=== PATIENT | female | born 1975 | race Caucasian/White ===

== ENCOUNTER 2025-05-25 06:17 | Emergency (ER) | payer OTHER, SELFPAY ==
--- NOTE | ~2025-05-25 | XR_ITS ---
CLINICAL HISTORY: lap band eval 1 view abdomen Comparison: None provided Findings: Lap band angulation is difficult to assess given craniocaudal angulation of band though angle appears to measure 68 degrees. No pneumoperitoneum or pneumatosis. No abnormal calcifications. IUD projects within the pelvis. No acute fractures. IMPRESSION: Normal bowel gas pattern. Lap band angulation of 68 degrees though accuracy is limited due to craniocaudal angulation on imaging. This document has been electronically signed by: Dat Womack MD on 05/25/2025 08:45:32
[2025-05-25 06:24] VITALS: BP 155/102; PULSE 97; RESP 18; TEMP 37; O2SAT 98; BMI 22.9
--- OUTSIDE RECORDS SUMMARY | 2025-05-25 06:44 | XMS_ITS | Data Portability ---
Author Organization [facility] [address] [place] [address] Assessment No assessment recorded. Plan of Treatment Reminders Order Date Submit Date Provider Last Modified By Organization Details Last Modified Time Details Appointments None recorded. Lab None recorded. Referral None recorded. Procedures None recorded. Surgeries None recorded. Imaging None recorded. Medication Orders valacyclovi r 1 gram tablet 2022 023 [email or web address] [facility] #[id number], [address] [facility] [place], [address], 18:03:19 Patient TargetsNo targets recorded. Patient Instructions Encounter Date Encounter Id Patient Instructions Last Modified By Organization Details Last Modified Time 01/17/2023 [id number] shingles: care instructions [email or web address] Not available 01/17/2023 17:49:31 shingles information [email or web address] Not available 01/17/2023 17:49:31 Take the medication as prescribed. Keep lesions clean. Topical antibiotic ointment can be used if needed. Over the counter tylenol or ibuprofen may be taken per package instructions for pain if needed. See printed instructions and work note. Follow-up with your doctor if no improvement in a few days. Seek Emergency Medical evaluation for any worsening symptoms. [email or web address] Not available 01/17/2023 17:49:31 Reason for Referral None Reported. Problems No Known Problems Medical Equipment None Reported. Allergies No known drug allergies Medications Name Sig Start Date Stop Date Status Note LastModified by Organization Details LastModified Time valacyclovir 1 gram tablet Take 1 tablet 3 times a day by oral route for 7 days. 023 active Not Available Not Available Not Avai lable Vitals Date Recorded Body height Body mass index (BMI) Body weight Respiratory rate Pain severity - 0-10 verbal numeric rating [Score] - Reported Oxygen saturation Oxygen saturation in Arterial blood by Pulse oximetry Heart rate Body temperature Systolic And Diastolic Provider Name and Address Organization Details Last Updated DateTime 3 172.72 cm 28.9 kg/m2 30941.5 5 g 20 /min 6 98 % 98 % 84 /min 98.5 [degF] 132/87 mm[Hg] Lianet Edwards PA [employer] 3 16:30:35 Social History Question Answer Notes LastModified by [facility] Details LastModified Time Tobacco Smoking Status Never Smoker Lianet farrell PA - [employer] [facility] 01/17/2023 16:28:52 Have You Had Direct Contact, Or Contact During Intimacy, With Monkeypox Rash, Scabs, Or Body Fluids From A Person With Monkeypox? No Information not available 01/17/2023 Have You Recently Traveled Abroad? No Information not available 01/17/2023 Sex: Unknown Functional Status Question Answer Note LastModified by [facility] Details LastModified Time Do you use any illicit or recreational drugs? No Information not available 01/17/2023 Do you or have you ever used any other forms of tobacco or nicotine? No Information not available 01/17/2023 What is your level of alcohol consumption? Occasional Information not available 01/17/2023 Mental Status None recorded. Family History Relationship Description Onset Age of this Age Resolved Age Notes LastModified by Organization Details LastModified Time Father No current problems or disability Not available 01/17 16:28:45 Mother No current problems or disability Not available 01/17 16:28:45 Medical History No medical history recorded. Gynecological History Statement/Question Response Is there any chance of ? No LMP N/A Obstetrics History GPAL:G 0 P 0 0 0 0 Past Encounters Encounter ID Performer Location Encounter Start Date Encounter Closed Date Diagnosis/Indication Diagnosis SNOMED-CT Code Diagnosis ICD10 Code Diagnosis IMO Codes Diagnosis Note [id number] [address] [place] [address] 01/11/2022 08:52:17 01/11/2022 09:30:18 [id number] Isidra Marrero MD [address] [place] [address] 01/17/2023 16:07:48 01/17/2023 18:17:12 Herpes zoster 7557656 B02.9 Health Concerns Section Related Observation LastModified by Organization Detai ls LastModified Time None Recorded Concern Status LastModified by Organization Details LastModified Time None Recorded Advance Directives Directive None Recorded Payers Insurance Date Sequence Insurance Name Policy Number Policy Vaughan Covered Member ID Vaughan Member ID Guarantor Name 01/17/2023 1 [employer] Alysa C Cyn [id number] Alysa Cyn 01/17/2023 2 [employer] Alysa Cyn [id number] Alysa Cyn Notes Date Note Type Note Provider Name and Address Organization Details Recorded Time 01/17/2023 text/html UC Rash/Skin LesionReported by PatientHPIFor quality, patient reportspainful,red, andspreading. For associated symptoms, patient reportsfatiguebut reportsno fever. For source of patient information, patient reportsinformation obtained from patientandpatient arrived at urgent care ambulatory. For location, patient reportsback. For severity, patient reportsmoderate. For duration, patient reports1 days. For context, patient reportsno new detergent or skin product,no recent change in medication,no exposure to hair dye,no expsoure to new clothes/jewelry,no recent travel,no recent illness, andnot affiliated with chemicals/pesticides. For treatment history, patient reportsno history of treatment. For alleviating factors, (some improvement in pain with tylenol and ibuprofen.).47 year old female presenting for evaluation of possible shingles. The patient has a lap band in place and developed some constipation about 5 days ago. She resolved her constipation 2 days ago by taking metamucil. She noted some right lower back discomfort 2 days ago and thought it was due to her constipation but today she developed a rash consistent with shingles in the location of her pain. No fever or chills. She has a mild headache, some body aches and fatigue. No fever, chills, drainage from the lesions. No current abdominal pain. No nausea, vomiting or urinary symptoms. Isidra Marrero MD [address] [facility] [place], [address], PA - [facility] 01/17/2023 18:07:55 OBGyn Episode No OBEpisode recorded.
--- NOTE | 2025-05-25 07:09 | ED.NAVMDI ---
HPI - Nausea/Vomiting/Diarrhea General Chief complaint: Nausea/Vomiting/Diarrhea Stated complaint: General Medical Time Seen by Provider: 05/25/25 06:38 Source: patient Mode of arrival: ambulatory Limitations: no limitations History of Present Illness ED Provider: HPI Narrative: 49-year-old woman with a history of a lap band 2009 at [facility] with a surgeon who is retired, has had 2 modifications and had pressure decreased in the lap band before, reporting for the past 1-1/2 weeks heartburn, decreased sleep due to that, decreased p.o. intake, she states she is having a hard time keeping anything down. She is between jobs and her insurance and have had inability to follow up with her surgeon at that point. Related Data Allergies Allergy/AdvReac Type Severity Reaction Status Date / Time No Known Allergies Allergy Verified 05/25/25 06:24 Review of Systems Constitutional: Constitutional: Reports as per [facility] Social History Social History Advance Directives: No Advance Directives Information Provided: Yes Patient : No Physical Exam Exam: Exam: General: ?Appears of stated age ? ?mucosa is not dry, no scleral icterus ? ?CV: RRR, no obvious murmurs appreciated ? ?Resp: ?No wheezing rales rhonchi no stridor moving air well ? Abd: ?Bowel sounds are present, no rebound no rigidity ? ?MSK: FROM, strength 5/5 all extremities ? Skin: Warm, dry, intact, no jaundice ? ?Neuro: ?Alert and oriented x3, moving upper and lower extremities symmetrically, no obvious facial asymmetry noted, cranial nerves 2-12 intact Vital Signs: Vital Signs: Last Vital Signs Temp 98.4 F 05/25/25 08:00 Pulse 85 05/25/25 08:00 Resp 17 05/25/25 08:00 BP 119/83 05/25/25 08:00 Pulse Ox 100 05/25/25 08:00 O2 Del Method Room Air 05/25/25 08:00 BMI result Body Mass Index 22.9 Medical Decision Making Medical Decision Making [facility] Narrative: 8:30 AM 05/25/2025 (Dr. Ubaldo Clement): I sent consult to , obtain KUB, there was no obstructive patterns no free air, blood work without dehydration, wondering whether surgeon we will be able to decrease her lap band pressure 8:32 AM 05/25/2025 (Dr. Ubaldo Clement): Dr. Olvin rose for me to get in touch with bariatric surgery, we spoke on the phone. 9:56 AM 05/25/2025 (Dr. Ubaldo Clement): Dr. Wright was not not available via [employer] text, patient is not his patient so I am not going to pursue this further, blood work is reassuring patient is not dehydrated, vital signs unremarkable, no obstructive patterns on the x-ray, I spoke with the patient explained to her that I am not able to perform the procedure she was asking me and the general surgeon in his on is not able to perform it as well and our bariatric surgeon does not appear to be available on [employer] text , but the procedure was done at [facility], and patient feels comfortable going to [facility] and will be discharged. Differential Diagnosis Differential Diagnoses: The differential diagnosis associated with the presentation includes (Lap band slip, obstruction, dehydration, electrolyte derangements) Consult Healthcare Provider Management of the patient was discussed with: Nuclear Pharmacist (General surgery) attempted to contact via [place] text Dr. Wright from bariatric surgery Lab Data MDM Lab Attestation statement: I reviewed the patient's lab results. 05/25/25 07:43 05/25/25 07:43 Labs: Lab Results 05/25/25 Range/Units 07:43 WBC 6.3 (4.8-10.8) X10*3/uL RBC 4.53 (4.20-5.50) X10*6/uL Hgb 11.1 L (12.0-16.0) g/dl Hct 35.8 L (37.0-47.0) % MCV 79.0 L (80.0-98.0) fL MCH 24.5 L (27.0-33.0) pg MCHC 31.0 (31.0-35.0) g/dl RDW 15.0 (11.0-16.0) % Plt Count 245 (160-400) X10*3/uL MPV 10.1 (9.4-12.3) fL Immature Gran % (Auto) 0.2 (0.0-0.4) % Neut % (Auto) 55.5 (45-73) % Lymph % (Auto) 29.1 (20-40) % Dawson % (Auto) 7.0 (2-11) % Eos % (Auto) 7.2 H (0-4) % Baso % (Auto) 1.0 (0-2) % Lymph # (Auto) 1.8 (1.2-4.9) X10*3/uL Dawson # (Auto) 0.4 (0.1-1.2) X10*3/uL Eos # (Auto) 0.5 H (0.0-0.4) X10*3/uL Baso # (Auto) 0.1 (0.0-0.2) X10*3/uL Abs Immat Gran (auto) 0.01 (0.00-0.03) X10*3/uL Absolute Neuts (auto) 3.5 (2.0-8.3) x10*3/uL Absolute Nucleated RBC 0.000 (0.0-0.012) X10*3/uL Nucleated RBC % (auto) 0.0 (0.0-0.2) /100WBC Sodium 140 (135-145) mmol/L Potassium 3.5 (3.3-5.1) mmol/L Chloride 103 (96-108) mmol/L Carbon Dioxide 29 (22-29) mmol/L Anion Gap 12 (12-20) BUN 17 H (9-16) mg/dL Creatinine 0.87 (0.5-1.4) mg/dL Estim Creat Clear Calc 81.7 Estimated GFR > 60 Random Glucose 99 (60-115) mg/dL Calcium 9.6 (8.4-10.2) mg/dL Total Bilirubin 0.6 (0.0-1.0) mg/dL AST 20 (5-31) U/L ALT 22 (0-31) U/L Alkaline Phosphatase 74 (39-117) U/L Total Protein 6.7 (6.5-8.0) g/dL Albumin 4.1 (3.5-5.0) g/dL Lipase 15 (8-78) U/L Beta HCG, Quant 5 mIU/mL Independent Interpretation I performed an independent interpretation of an: Plain X-Ray (But band is in place, no obstructive patterns, stool is present in the bowel) Radiology Impression Discussion of test interpretation with radiology: I have reviewed the radiologist's reading. Radiologist Impression: Normal bowel gas pattern. Lap band angulation of 68 degrees though accuracy is limited due to craniocaudal angulation on imaging. Discharge Plan Discharge Clinical Impression: Hx of laparoscopic adjustable gastric banding Additional Instructions: We do have bariatric surgery service available as you are aware, your blood work does not reveal any evidence for dehydration your vital signs are reassuring, lap band is in place without issues, see below, I spoke to general surgeon, she recommended I tried to get in touch with Dr. Wright but this is a Monday and because you are not a patient here unlikely that he is going to be subcontracts manager for this type of procedure. You are likely going to [facility] where you had this procedure done, but if you have any other issues or concerns I would like to establish visits with our bariatric surgery I am providing you with a number, any other issues concerns do not hesitate to come back to the ER I am attaching report: IMPRESSION: Normal bowel gas pattern. Lap band angulation of 68 degrees though accuracy is limited due to craniocaudal angulation on imaging. Referrals: [facility] [Provider Group, Bariatric Surgery] Print Language: [place]ese
[2025-05-25 07:51] LABS: MANUAL DIFF FLAG NO
--- NOTE | 2025-05-25 07:53 | PC.NURSE ---
Labs collected per MD order
[2025-05-25 07:57] LABS: Hematocrit 35.8 % (37.0-47.0); Hemoglobin 11.1 g/dl (12.0-16.0); Imm Gran Abs Auto 0.01 X10*3/uL (0.00-0.03); Imm Gran Pct Auto 0.2 % (0.0-0.4); Lymphocytes Absolute Auto 1.8 X10*3/uL (1.2-4.9); Mean Corpuscular HGB Conc 31.0 g/dl (31.0-35.0); Mean Corpuscular Hemoglobin 24.5 pg (27.0-33.0); Mean Corpuscular Volume 79.0 fL (80.0-98.0); NRBC Abs Auto 0.000 X10*3/uL (0.0-0.012); NRBC Pct Auto 0.0 /100WBC (0.0-0.2); Platelet Count 245 X10*3/uL (160-400); Red Blood Count 4.53 X10*6/uL (4.20-5.50); White Blood Count 6.3 X10*3/uL (4.8-10.8)
[2025-05-25 08:00] VITALS: BP 119/83; PULSE 85; RESP 17; TEMP 36.9; O2SAT 100
[2025-05-25 08:16] LABS: Alanine Aminotransferase 22 U/L (0-31); Albumin Level 4.1 g/dL (3.5-5.0); Alkaline Phosphatase 74 U/L (39-117); Anion Gap 12 (12-20); Aspartate Amino Transferase 20 U/L (5-31); Blood Urea Nitrogen 17 mg/dL (9-16); Calcium 9.6 mg/dL (8.4-10.2); Carbon Dioxide 29 mmol/L (22-29); Chloride 103 mmol/L (96-108); Creatinine Clr Calc Pharmacy 81.7; Estimated Glomerular Filt Rate > 60; Lipase 15 U/L (8-78); Potassium 3.5 mmol/L (3.3-5.1); Sodium 140 mmol/L (135-145); Total Protein 6.7 g/dL (6.5-8.0)
[2025-05-25 10:55] VITALS: BP 129/88; PULSE 86; RESP 16; TEMP 36.9; O2SAT 99
[2025-05-25 12:18] VITALS: BP 129/88; PULSE 86; RESP 16; TEMP 36.9; O2SAT 99
== END 2025-05-25 12:19 | disposition home or self-care (01) ==
PROVIDERS: Emergency Provider Emergency Medicine
DX: R12 Heartburn (principal); Z98.84 Bariatric surgery status
CPT/HCPCS: 36415; 74018; 80053; 83690; 84702; 85025; 99283; 99284

== ENCOUNTER → 2025-05-25 07:09 | Outpatient (BNV) | payer SELFPAY | PROVIDERS: Emergency Provider Emergency Medicine; Visit Provider Radiology Vascular & Interventional Radiology | DX: Z46.51 Encounter for fitting and adjustment of gastric lap band (principal) | CPT/HCPCS: 74018 ==